=== PATIENT | male | born 1955 ===

== ENCOUNTER 2017-05-10 06:28 | Emergency (ER) | payer OTHER ==
[2017-05-10 06:28] VITALS: BMI 32.5
[2017-05-10 06:37] VITALS: TEMP 97.7
[2017-05-10 07:36] LABS: BASO # 0.1 K/uL (0.0-0.2); BASO % 1.1 % (0.0-2.0); EOS # 0.4 K/uL (0.0-0.7); EOS % 5.7 % (0.0-4.0); HEMOGLOBIN 10.4 g/dL (12.0-18.0); LYMPH # 1.3 K/uL (1.0-4.3); LYMPH % 17.5 % (20.0-40.0); MEAN CELL VOLUME 89.1 fl (80.0-94.0); MEAN CORPUSCULAR HEMOGLOBIN 28.7 pg (27.0-31.0); MEAN CORPUSCULAR HGB CONC 32.2 g/dL (33.0-37.0); MEAN PLATELET VOLUME 10.8 fl (7.2-11.7); MONO # 0.9 K/uL (0.0-0.8); MONO % 12.9 % (0.0-10.0); NEUT # 4.5 K/uL (1.8-7.0); NEUT % 62.8 % (50.0-75.0); RBC 3.64 Mil/uL (4.40-5.90); RED CELL DISTRIBUTION WIDTH 13.2 % (11.5-14.5); WHITE BLOOD COUNT 7.2 K/uL (4.8-10.8)
--- NOTE | 2017-05-10 07:40 | ED PDOC ---
HPI: General Adult Time Seen by Provider: 05/10/17 07:00 Chief Complaint (Nursing): Dizziness/Lightheaded Chief Complaint (Provider): Dizziness/Weakness History Per: Patient History/Exam Limitations: no limitations Onset/Duration Of Symptoms: Days (x2 days) Current Symptoms Are (Timing): Still Present Additional Complaint(s): Baljit Willson is a 62 y/o male with a past medical history of diabetes, hypertension, kidney problems, and Coronary Artery Bypass Graft Surgery (CABG) who presents to the emergency department with a complaint of generalized weakness x2 days. Associated sleep deprivation. Denies fever, cough, vomiting, and diarrhea, headache --Contrary to triage note; patient denies blurry vision and dizziness. PMD: Dr. Master Morrison MD Past Medical History Reviewed: Historical Data, Nursing Documentation, Vital Signs Vital Signs: Last Vital Signs Temp 97.7 F 05/10/17 06:30 Pulse 87 05/10/17 10:15 Resp 18 05/10/17 10:15 BP 145/89 05/10/17 10:15 Pulse Ox 96 05/10/17 13:43 - Medical History PMH: Diabetes, HTN, Hypercholesterolemia, Chronic Kidney Disease (renal problem , no dialysis) Denies: HIV - Surgical History Surgical History: CABG (3 vessels) - Family History Family History: States: [place], CAD - Social History Current smoker - smoking cessation education provided: No Alcohol: None Drugs: Denies - Home Medications Home Medications: Ambulatory Orders Medication Instructions Recorded Atorvastatin [Lipitor] 20 mg PO DAILY #0 tab 04/22/15 Liraglutide [Victoza 2-Juan] 1.8 mg SC DAILY 07/01/15 Aspirin [Aspirin] 81 mg PO DAILY 09/26/15 Dexlansoprazole [Dexilant] 60 mg PO DAILY 09/26/15 Insulin Detemir [Levemir] 10 units SC HS 09/26/15 Lisinopril [Zestril] 40 mg PO DAILY 09/26/15 Metoprolol Succinate [Toprol XL] 50 mg PO DAILY 09/26/15 - Allergies Allergies/Adverse Reactions: Allergies Allergy/AdvReac Type Severity Reaction Status Date / Time No Known Allergies Allergy Verified 05/10/17 06:41 Review of Systems ROS Statement: Except As Marked, All Systems Reviewed And Found Negative Constitutional: Positive for: Weakness (Generalized), Other (sleep deprivation) . Negative for: Fever Eyes: Positive for: Vision Change (Blurriness) Respiratory: Negative for: Cough Gastrointestinal: Negative for: Vomiting, Diarrhea Neurological: Positive for: Dizziness Physical Exam - Reviewed Nursing Documentation Reviewed: Yes Vital Signs Reviewed: Yes - Physical Exam Appears: Positive for: Well, Non-toxic, No Acute Distress Head Exam: Positive for: ATRAUMATIC, NORMOCEPHALIC Skin: Positive for: Normal Color, Warm, Dry ENT: Negative for: Pharyngeal Erythema Neck: Positive for: Normal, Supple Cardiovascular/Chest: Positive for: Regular Rate, Rhythm. Negative for: Murmur , Tachycardia Respiratory: Positive for: Normal Breath Sounds. Negative for: Accessory Muscle Use, Respiratory Distress Gastrointestinal/Abdominal: Positive for: Normal Exam, Soft. Negative for: Tenderness Extremity: Positive for: Normal ROM. Negative for: Pedal Edema Neurologic/Psych: Positive for: Alert, Oriented. Negative for: Motor/Sensory Deficits - Laboratory Results Result Diagrams: 05/10/17 07:20 05/10/17 07:20 - ECG O2 Sat by Pulse Oximetry: 96 (RA) Pulse Ox Interpretation: Normal Medical Decision Making Medical Decision Making: Time: 07:21 Initial impression: generalized weakness Initial plan: --Electrocardiogram STAT --COMP [facility] Panel --EKG-ED --CBC w. differential --Reevaluation --Accucheck: 135 Time: 09:24 --Patient is feeling a lot better. Advised to patient that kidney function worsened compared to prior visit and must follow up with kidney doctor. pt sees Dr Vasquez at [facility]. --Labs are back and shows patient is slightly anemic. Potassium is 5.3 with elevated creatinine. Creatinine levels were a 3.2 and today shows a level of 3.8. --Ordered Sodium Polystyrene Sulfonate 15 gm PO for elevated potassium. EKG NSR. Pt instructed that gen weakness could be related to his slowly worsening renal function and thats why need close follow up with renal doctor Scribe Attestation: Documented by Betty Lawrence, acting as a scribe for Evelyn Ledesma MD. Provider Scribe Attestation: All medical record entries made by the Scribe were at my direction and personally dictated by me. I have reviewed the chart and agree that the record accurately reflects my personal performance of the history, physical exam, medical decision making, and the department course for this patient. I have also personally directed, reviewed, and agree with the discharge instructions and disposition. Disposition - Clinical Impression Clinical Impression: Weakness - Patient ED Disposition Is Patient to be Admitted: No Counseled Patient/Family Regarding: Studies Performed, Diagnosis, Need For Followup - Disposition Disposition: Routine/Home Disposition Time: 09:45 Condition: IMPROVED Additional Instructions: follow up with Dr Vasquez your kidney doctor in 1-2 days for worsening kidney function return to ED with any worsening or concerning symptoms Instructions: Weakness (ED) Forms: [facility] ED School/Work Excuse
[2017-05-10 07:42] LABS: ALB/GLOB RATIO 1.1 (1.0-2.1); ALBUMIN 3.6 g/dL (3.5-5.0); CALCIUM 9.1 mg/dL (8.4-10.2)
[2017-05-10] MEDS ORDERED: Sod Polystyrene Sulf 15 gm/60 ml Oral Susp PO ONE (09:24)
[2017-05-10] MEDS ORDERED: Sod Polystyrene Sulf 15 gm/60 ml Oral Susp ONE (09:44)
--- NOTE | 2017-05-10 09:52 | CARD ---
APPROVED REPORT EKG Measurement Heart [id number] <Conclusion> Normal sinus rhythm Anterior infarct, age undetermined Abnormal ECG
[2017-05-10 10:17] VITALS: BP 145/89; PULSE 87; RESP 18
[2017-05-10 13:24] VITALS: O2SAT 96
== END 2017-05-10 10:17 | disposition home or self-care (01) ==
LOC: H.ER 06:28
DX: R53.1 Weakness (principal); I12.9 Hypertensive chronic kidney disease with stage 1 through stage 4 chronic kidney disease, or unspecified chronic kidney disease; N18.9 Chronic kidney disease, unspecified; E78.00 Pure hypercholesterolemia, unspecified; Z95.1 Presence of aortocoronary bypass graft